=== PATIENT | female | born 1975 | race Caucasian/White ===

== ENCOUNTER 2021-10-17 12:19 | Outpatient (CLI) | payer OTHER ==
[~2021-10-17 12:19] MED LIST: PRENATAL1 TAB PO
== END 2021-10-17 12:21 | disposition home or self-care (01) ==
LOC: SONOGRAMA 12:19
PROVIDERS: ATTEND Pathology Anatomic Pathology & Clinical Pathology
DX: E04.1 Nontoxic single thyroid nodule (principal)